=== PATIENT | female | born 2000 | race Hispanic/Latino ===

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

== ENCOUNTER 2020-04-05 21:07 | Emergency (ER) | payer MEDICAID, SELFPAY ==
[2020-04-05 21:28] LABS: Bilirubin Negative (Negative); Blood, Urine Large (Negative); Glucose, Urine (Dipstick) Negative (Negative); Ketone, Urine Negative (Negative); Leukocyte Small (Negative); Nitrite Negative (Negative); Protein, Urine (Dipstick) 100 mg/dL (Neg-Trace); Urobilinogen 0.2 mg/dL (Less than 2)
[2020-04-05] MEDS ORDERED: Ketorolac Tromethamine 60 MG/2 ML VIAL ONE (21:32)
[2020-04-05] MEDS ORDERED: HYDROcodone/Acetaminophen 10/325 mg Tablet ONE (21:32)
[2020-04-05 21:49] LABS: Clarity SL HAZY (Clear)
[2020-04-05 21:50] LABS: Pregnancy Test - Urine (BHCG) Negative (Negative); Pregu Control Background? CLEAR/WHITE (CLR/WHITE); Pregu Control Bar Appear? YES (CONTROL BAR)
[2020-04-05 21:55] LABS: RBC/HPF 21-50 HPF (0-3); Squamous Epithelial 0-3 HPF (0-3)
--- NOTE | 2020-04-05 22:42 | CT ---
CT ABDOMEN AND PELVIS PERFORMED WITHOUT CONTRAST ENHANCEMENT: Date: 04/05/2020 HISTORY: Left flank pain and hematuria. FINDINGS: CT ABDOMEN: The lung bases are clear of infiltrates. The liver and spleen appear unremarkable. Pancreas shows no mass. Gallstone is identified. Right and left adrenal glands are normal. Right and left kidneys are within normal limits of size. No renal calculi are seen. There is slight dilatation to the left collecting system. The left ureter do es not appear dilated. There is some slight fat stranding around the left renal pelvis. It is possibl e these changes are the sequelae of a passed calculus. The possibility of a mass in the left renal pe lvis region is not excluded. There is no significant periaortic or mesenteric adenopathy. CT PELVIS: A moderate amount of free fluid is present within the cul-de-sac, probably related to stage of menstr ual cycle. The cecum is somewhat low lying. The appendix is normal. IMPRESSION: 1. Fat stranding around the left renal pelvis which is slightly dilated. I do not see any definite r enal or ureteral calculus. This could be related to a UTI in a patient in this age group. A neoplasti c process would be considered less likely given patient's age. A passed stone would be a possibility. 2. Small gallstone. 3. Moderate free fluid in the cul-de-sac region suggesting there has been a ruptured follicle, proba kimmie related to stage of menstrual cycle. POS: [facility]
== END 2020-04-05 23:04 | disposition home or self-care (01) ==
LOC: NAV ERS 21:07
DX: N10 Acute pyelonephritis (principal)
CPT/HCPCS: 74176; 81003; 81015; 81025; 96372; J1885

== ENCOUNTER 2020-09-15 11:31 | Emergency (ER) | payer SELFPAY ==
[2020-09-15 12:04] LABS: Bilirubin Negative (Negative); Blood, Urine Trace (Negative); Clarity Clear (Clear); Glucose, Urine (Dipstick) Negative (Negative); Ketone, Urine Negative (Negative); Leukocyte Negative (Negative); Nitrite Negative (Negative); Protein, Urine (Dipstick) Trace mg/dL (Neg-Trace); Urobilinogen 0.2 mg/dL (Less than 2)
[2020-09-15 12:17] LABS: Bacteria/HPF Rare-Few HPF (None Seen); RBC/HPF 0-3 HPF (0-3); Squamous Epithelial 0-3 HPF (0-3); WBC/HPF None Seen HPF (0-3)
[2020-09-15] MEDS ORDERED: Sodium Chloride 0.9% 1,000 ML ONE (12:18)
[2020-09-15 12:26] LABS: #Basophils 0.1 thou/uL (0.0-0.2); #Lymphocytes 0.7 thou/uL (1.20-3.40); #Monocytes 0.8 thou/uL (0.11-0.59); #Neutrophils 8.4 thou/uL (1.40-6.50); %Basophils 0.5 % (0.0-1.0); %Eosinophils 0.4 % (0.0-10.0); %Lymphocytes 7.1 % (28.0-48.0); %Monocytes 7.9 % (0.0-4.0); %Neutrophils 84.1 % (31.0-61.0); Hemoglobin 13.9 g/dL (12.0-16.0); Mean Corpuscular HGB CONC 32.9 g/dL (32.0-36.0); Mean Corpuscular Hemoglobin 28.9 pg (25.0-35.0); Mean Corpuscular Volume 88.1 fL (78.0-98.0); Mean Platelet Volume 6.6 fL (7.4-10.4); Platelet Count 331 thou/uL (130-400); RBC Distribution Width 12.1 % (11.5-14.5); Red Blood Cell (RBC) Count 4.79 mill/uL (4.00-5.20)
[2020-09-15 12:33] LABS: Pregnancy Test - Urine (BHCG) Negative (Negative); Pregu Control Background? CLEAR/WHITE (CLR/WHITE); Pregu Control Bar Appear? YES (CONTROL BAR)
[2020-09-15 12:37] LABS: ALT (SGPT) 23 U/L (8-55); AST (SGOT) 22 U/L (5-34); Albumin 4.4 g/dL (3.5-5.0); Alkaline Phosphatase 78 U/L (40-100); Anion Gap 14 mmol/L (10-20); BUN (Urea Nitrogen) 12 mg/dL (7.0-18.7); Bilirubin, Total 0.2 mg/dL (0.2-1.2); Calc. Creatinine Clearance 0 mL/min (70-130); Calcium 9.1 mg/dL (7.8-10.44); Carbon Dioxide 22 mmol/L (22-29); Chloride 101 mmol/L (98-107); Globulin 3.9 g/dL (2.4-3.5); Glucose 111 mg/dL (70-105); Potassium 4.2 mmol/L (3.5-5.1); Protein, Total 8.3 g/dL (6.0-8.3); Sodium 133 mmol/L (136-145)
--- NOTE | 2020-09-15 13:03 | RAD ---
Portable frontal chest radiograph: 09/15/2020 COMPARISON: None HISTORY: Headache with sore throat, cough, and nausea with vomiting FINDINGS: The patient is slightly rotated to the right. The heart and mediastinal contours appear mer ssly unremarkable. No pneumothorax or pleural fluid is seen and there is no focal consolidation or alveolar edema. IMPRESSION: No focal consolidation or alveolar edema.
[2020-09-15] MEDS ORDERED: Ondansetron PF 4 MG/2 ML Vial ONE (13:16)
[2020-09-16 17:09] LABS: SARS-CoV-2 PCR by NAA DETECTED (NotDetected)
== END 2020-09-15 13:31 | disposition home or self-care (01) ==
LOC: NAV ERS 11:31
DX: U07.1 COVID-19 (principal)
CPT/HCPCS: 71045; 80053; 81003; 81015; 81025; 83605; 85025; 87635; 96374; J2405; J7050; U0003; U0005